=== PATIENT | female | born 1965 | race Caucasian/White ===

== ENCOUNTER → 2016-10-17 | Outpatient (CLI) | payer OTHER ==
--- NOTE | 2016-10-17 13:40 | BD ---
EXAMINATION TYPE: MG DEXA axial skeleton. DATE OF EXAM: 10/17/2016 8:42 AM COMPARISON: NONE CLINICAL HISTORY: Postmenopausal female Height: 62 Weight: 121.6 FRAX RISK QUESTIONS: Alcohol (3 or more units per day): YES Family History (Parent hip fracture): NO Glucocorticoids (More than 3mos): NO (Ex: prednisone, prednisolone, methylprednisolone, dexamethasone, and hydrocortisone). History of Fracture in Adulthood: NO Secondary Osteoporosis: 1. Type 1 Diabetes: NO 2. Hyperthyroidism: NO 3. Menopause before 45: AGE 49 4. Malnutrition: NO 5. Chronic liver disease: NO Rheumatoid Arthritis: NO Current Tobacco Use: NO RISK FACTORS HISTORY OF: Hip Fracture (Right/Left): NO Spine Fracture: NO History of Wrist Fracture: NO Surgery to Spine/Hip(right/left)/Wrist (right/left): NO Family History of Osteoporosis: YES Active: YES Diet low in dairy products/other sources of calcium: NO Postmenopausal woman: AROUND AGE 49 Lost more than 2 inches in height since high school: NO Frequent falls: NO Adrenal Insufficiency: NO MEDICATIONS: VENLAFAXINE, ATORVASTATIN, FLEXERIL, AMBIEN, RIZATRIPTAN Additional History: BREAST CANCER IN 2003 EXAM MEASUREMENTS: Bone mineral densitometry was performed using the [employer] System. Bone mineral density as measured about the Lumbar spine is: ----- L1-L4(G/cm2): 1.112 T Score Values are as follows: ----- L2: -0.5 ----- L3: -0.5 ----- L4: -0.3 ----- L1-L4: -0.6 Bone mineral density BASELINE HERE Bone mineral density about the R hip (g/cm2): 0.853 Bone mineral density about the L hip (g/cm2): 0.877 T Score values are as follows: -----R Neck: -1.3 -----L Neck: -1.2 -----R Intertrochanter: -0.6 -----L Intertrochanter: -0.1 Bone mineral density BASELINE IMPRESSION: No evidence for osteoporosis or osteopenia at this time. NOTE: T-SCORE=SD OF THE YOUNG ADULT MEAN.
--- NOTE | 2016-10-22 09:32 | MM ---
Reason for exam: additional evaluation requested from prior study. Last mammogram was performed 1 year and 1 month ago. History: Patient is postmenopausal and has history of breast cancer at age 37. Silicone gel implants in both breasts, 2003. Mastectomy of the right breast, 2003. Chemotherapy. Taking estrogen for 2 years. Taking tamoxifen for 5 years. Physical Findings: Nurse did not find any significant physical abnormalities on exam. MG Diag Mamm Implant LT w CAD CC and MLO view(s) were taken of the left breast. Prior study comparison: September 05, 2015, mammogram, performed at [facility]. March 12, 2013, mammogram, performed at [facility]. The breast tissue is heterogeneously dense. This may lower the sensitivity of mammography. No significant new findings when compared with previous films. These results were verbally communicated with the patient and result sheet given to the patient on 10/17/16. ASSESSMENT: Benign, BI-RAD 2 RECOMMENDATION: Follow-up diagnostic mammogram of the left breast in 1 year.
== END ==
LOC: RADMAMWWP 07:40
PROVIDERS: ATTEND Obstetrics & Gynecology
DX: Z08 Encounter for follow-up examination after completed treatment for malignant neoplasm (principal); Z85.3 Personal history of malignant neoplasm of breast; Z78.0 Asymptomatic menopausal state
CPT/HCPCS: 77080; G0206

== ENCOUNTER → 2017-10-29 | Outpatient (CLI) | payer OTHER ==
--- NOTE | 2017-10-29 10:54 | MM ---
Reason for exam: additional evaluation requested from prior study. Last mammogram was performed 1 year ago. History: Patient is postmenopausal and has history of breast cancer at age 37. Silicone gel implants in both breasts, 2003. Mastectomy of the right breast, 2003. Chemotherapy. Physical Findings: Nurse did not find any significant physical abnormalities on exam. MG Diag Mamm Implant LT w CAD CC and MLO view(s) were taken of the left breast. Prior study comparison: October 17, 2016, left breast MG diag mamm implant LT w CAD. September 05, 2015, mammogram, performed at [facility]. The breast tissue is heterogeneously dense. This may lower the sensitivity of mammography. Retropectoral silicone implants. No significant new findings when compared with previous films. These results were verbally communicated with the patient and result sheet given to the patient on 10/29/17. ASSESSMENT: Negative, BI-RAD 1 RECOMMENDATION: Routine screening mammogram of the left breast in 1 year.
== END ==
LOC: RADMAMWWP 09:45
PROVIDERS: ATTEND Obstetrics & Gynecology
DX: Z08 Encounter for follow-up examination after completed treatment for malignant neoplasm (principal); Z85.3 Personal history of malignant neoplasm of breast
CPT/HCPCS: 77065

== ENCOUNTER → 2018-10-06 | Outpatient (CLI) | payer OTHER ==
--- NOTE | 2018-10-06 14:09 | US ---
EXAMINATION TYPE: US pelvic complete DATE OF EXAM: 10/06/2018 COMPARISON: NONE CLINICAL HISTORY: 53-year-old female N95.0 Post menopausal bleeding. Pt states episode of vaginal spo tting one month ago x 2 days, pt states not on HRT's, H/O breast CA, LMP: 8 years ago TECHNIQUE: Transabdominal sonographic images of the pelvis were acquired. Pt declined TV at this zack e Date of LMP: 8 years ago FINDINGS: EXAM MEASUREMENTS: Uterus: 8.2 x 3.5 x 4.7 cm Endometrial Stripe: 0.6 cm Right Ovary: 1.7 x 1.2 x 1.0 cm Left Ovary: 1.8 x 1.4 x 1.5 cm 1. Uterus: Anteverted Heterogeneous with possible fibroid mid fundus= 2.1 x 1.8 x 2.5 cm. This umberto ears primarily intramural but may have a submucosal component. 2. Endometrium: Upper limits of normal to borderline thickened. 3. Right Ovary: wnl 4. Left Ovary: wnl 5. Bilateral Adnexa: wnl 6. Posterior cul-de-sac: wnl IMPRESSION: 1. The endometrial stripe is borderline to mildly thickened for a postmenopausal female at 6 mm. Cons ider either further evaluation versus follow-up. 2. A heterogeneous rounded area suggesting a 2.5 cm mid uterine fibroid. This appears primarily intra mural but may have a submucosal component. If indicated, female pelvic MRI can be considered to eduardo r assess the junctional anatomy and for assessment of underlying fibroid change.
== END ==
LOC: RADUSWWP 12:15
PROVIDERS: ATTEND Obstetrics & Gynecology
DX: R93.89 Abnormal findings on diagnostic imaging of other specified body structures (principal); N95.0 Postmenopausal bleeding
CPT/HCPCS: 76856

== ENCOUNTER → 2018-10-30 | Outpatient (CLI) | payer OTHER ==
--- NOTE | 2018-10-30 10:42 | BD ---
EXAMINATION TYPE: Axial Bone Density DATE OF EXAM: 10/30/2018 COMPARISON: 10.17.2016 CLINICAL HISTORY: 53 YR OLD FEMALE....ICD-10 CODE: M89.9 DISORDER OF BONE Height: 61.4 Weight: 124 FRAX RISK QUESTIONS: NOTHING TO NOTE HERE RISK FACTORS HISTORY OF: HX OF FX TO CLAVICLE AND SCAPULA AT 20 YRS OLD, Family History of Osteoporosis: YES, MOTHER AND SISTER NO HIP FXS Active: YES Postmenopausal woman: YES ABOUT 49 YRS OLD MEDICATIONS: Additional Medications: HX OF CHEMO, CALCIUM WITH D, BP MEDS, VENLAFAXINE, STATIN FOR CHOLDESTEOL , F EMARA FOR 5 YRS , NOT NOW, Additional History: HX OF RT BREAST CANCER AT 37 YRS OLD, HYPERTENSION, CHOLESTEROL, EXAM MEASUREMENTS: Bone mineral densitometry was performed using the [employer] System. Bone mineral density as measured about the Lumbar spine is: ----- L1-L4(G/cm2): 1.263 T Score Values are as follows: ----- L1: -0.2 ----- L2: -0.5 ----- L3: 0.8 ----- L4: 2.4 ----- L1-L4: 0.7 Bone mineral density has: Increased 14.1% since study of: 10.17.2016 Bone mineral density about the R hip (g/cm2): 1.010 Bone mineral density about the L hip (g/cm2): 1.020 T Score values are as follows: -----R Neck: -1.2 -----L Neck: -1.1 -----R Total: 0.0 -----L Total: 0.1 Bone mineral density has: Increased 3.0% since study of: 10.17.2016 FRAX%s: THERE IS A 4.7% CHANCE FOR A MAJOR OSTEOPOROTIC FX AND A 0.3% FOR HIP .....PROBABILITY OF F X IN 10 YRS TIME IMPRESSION: Normal (Values between +1 and -1 indicate normal bone mass). Consider repeating this study in 5 year s or sooner if there is some new clinical indication. NOTE: T-SCORE=SD OF THE YOUNG ADULT MEAN.
--- NOTE | 2018-10-31 11:50 | MM ---
Reason for exam: screening (asymptomatic). Last mammogram was performed 1 year ago. History: Patient is postmenopausal and has history of breast cancer at age 37. Silicone gel implants in both breasts, 2004. Mastectomy of the right breast, 2003. Chemotherapy. Physical Findings: A clinical breast exam by your physician is recommended on an annual basis and results should be correlated with mammographic findings. MG Screen Anmol Unilateral W/Cad CC, MLO, and ID view(s) were taken of the left breast. Prior study comparison: October 29, 2017, left breast MG diag mamm implant LT w CAD. October 17, 2016, left breast MG diag mamm implant LT w CAD. The breast tissue is heterogeneously dense. This may lower the sensitivity of mammography. Left retropectoral silicone implant. ASSESSMENT: Negative, BI-RAD 1 RECOMMENDATION: Routine screening mammogram of the left breast in 1 year.
== END | disposition home or self-care (01) ==
LOC: RADMAMWWP 09:17
PROVIDERS: ATTEND Obstetrics & Gynecology
DX: Z12.31 Encounter for screening mammogram for malignant neoplasm of breast (principal); M85.80 Other specified disorders of bone density and structure, unspecified site; Z90.11 Acquired absence of right breast and nipple; Z98.82 Breast implant status
CPT/HCPCS: 77067; 77080

== ENCOUNTER → 2020-03-07 | Outpatient (CLI) | payer OTHER ==
--- NOTE | 2020-03-07 09:45 | MM ---
Reason for exam: additional evaluation requested from prior study. Last mammogram was performed 1 year and 4 months ago. History: Patient is postmenopausal and has history of breast cancer at age 37. Silicone gel implants in both breasts, 2004. Mastectomy of the right breast, 2003. Chemotherapy. Physical Findings: Nurse did not find any significant physical abnormalities on exam. MG Diag Mamm Implant LT w CAD CC, MLO, and ID view(s) were taken of the left breast. Prior study comparison: October 30, 2018, bilateral MG screen ben unilateral w/cad. October 29, 2017, left breast MG diag mamm implant LT w CAD. The breast tissue is heterogeneously dense. This may lower the sensitivity of mammography. Retropectoral silicone implant. No significant new findings when compared with previous films. These results were verbally communicated with the patient and result sheet given to the patient on 03/07/20. ASSESSMENT: Negative, BI-RAD 1 RECOMMENDATION: Follow-up diagnostic mammogram of the left breast in 1 year.
== END | disposition home or self-care (01) ==
LOC: RADMAMWWP 08:56
PROVIDERS: ATTEND Obstetrics & Gynecology
DX: Z08 Encounter for follow-up examination after completed treatment for malignant neoplasm (principal); Z85.3 Personal history of malignant neoplasm of breast
CPT/HCPCS: 77065

== ENCOUNTER → 2021-09-19 | Outpatient (CLI) | payer BC ==
--- NOTE | 2021-09-19 09:13 | MM ---
Reason for exam: additional evaluation requested from prior study. Last mammogram was performed 1 year and 6 months ago. History: Patient is postmenopausal and has history of breast cancer at age 37. Silicone gel implants in both breasts, 2004. Mastectomy of the right breast, 2003. Chemotherapy. Physical Findings: A clinical breast exam by your physician is recommended on an annual basis and results should be correlated with mammographic findings. MG Diag Mamm Implant LT w CAD CC and MLO view(s) were taken of the left breast. Prior study comparison: March 07, 2020, left breast MG diag mamm implant LT w CAD. October 30, 2018, bilateral MG screen ben unilateral w/cad. The breast tissue is heterogeneously dense. This may lower the sensitivity of mammography. Left subpectoral implant redemonstrated. These results were verbally communicated with the patient and result sheet given to the patient on 09/19/21. ASSESSMENT: Benign, BI-RAD 2 RECOMMENDATION: Follow-up diagnostic mammogram of the left breast in 1 year.
== END | disposition home or self-care (01) ==
LOC: RADMAMWWP 08:31
PROVIDERS: ATTEND Obstetrics & Gynecology
DX: Z78.0 Asymptomatic menopausal state (principal); Z85.3 Personal history of malignant neoplasm of breast
CPT/HCPCS: 77065

== ENCOUNTER → 2022-11-05 | Outpatient (CLI) | payer BC ==
--- NOTE | 2022-11-06 09:19 | MM ---
Reason for Exam: Additional evaluation requested from prior study. Last mammogram was performed 1 year(s) and 1 month(s) ago. Patient History: Menarche at age 15. First Full-Term at age 25. Postmenopausal. Breast cancer, age 37. 2003, Mastectomy on the Right side. Chemotherapy. 2003, Bilateral Implants. Prior Study Comparison: 10/30/2018 Bilateral Screening Mammogram, [facility]. 03/07/2020 Left Diagnostic Mammogram, [facility]. 09/19/2021 Left Diagnostic Mammogram, [facility]. Tissue Density: Left: There are scattered fibroglandular densities. Findings: Analyzed By CAD. Marker placed at the site of palpable abnormality marked medial inferior aspect. Benign left axillary lymph nodes are redemonstrated. No obvious new mass identified. Overall Assessment: Incomplete: need additional imaging evaluation, BI-RAD 0 Management: Diagnostic Breast Ultrasound of the left breast. Targeted ultrasound left breast palpable. Results were given to the patient verbally at the time of exam. Electronically signed and approved by: Dylan Mueller M.D.
== END | disposition home or self-care (01) ==
LOC: RADMAMWWP 14:57
PROVIDERS: ATTEND Obstetrics & Gynecology
DX: R92.8 Other abnormal and inconclusive findings on diagnostic imaging of breast (principal); Z85.3 Personal history of malignant neoplasm of breast; Z78.0 Asymptomatic menopausal state
CPT/HCPCS: 77065

== ENCOUNTER → 2024-02-20 | Outpatient (CLI) | payer BC ==
--- NOTE | 2024-02-21 08:38 | BD ---
EXAMINATION TYPE: Axial Bone Density DATE OF EXAM: 02/20/2024 CLINICAL HISTORY: 58 years old Female. ICD-10 CODE: N95.1 POST MENOPAUSAL Height: 61.5 Weight: 116 FRAX RISK QUESTIONS: Family History (Parent hip fracture): yes History of Fracture in Adulthood: no Secondary Osteoporosis: no RISK FACTORS HISTORY OF: Surgery to Spine/Hip(right/left)/Wrist (right/left): no MEDICATIONS: Thyroid Medications: no Osteoporosis Medications: no EXAM MEASUREMENTS: Bone mineral densitometry was performed using the [employer]. Bone mineral density as measured about the Lumbar spine is: ----- L1-L4(G/cm2): 1.120 T Score Values are as follows: ----- L1: -1.3 ----- L2: -1.1 ----- L3: -0.9 ----- L4: 0.7 ----- L1-L4: -0.5 Z Score Values are as follows: ----- L1: 0.1 ----- L2: 0.3 ----- L3: 0.5 ----- L4: 2.1 ----- L1-L4: 0.9 Bone mineral density has: Decreased -11.3% since study of: 10/30/2018 Bone mineral density about the R hip (g/cm2): 0.972 Bone mineral density about the L hip (g/cm2): 1.007 T Score values are as follows: -----R Neck: -1.8 -----L Neck: -1.1 -----R Total: -0.3 -----L Total: 0.0 Z Score values are as follows: -----R Neck: -0.4 -----L Neck: 0.3 -----R Total: 0.8 -----L Total: 1.1 Bone mineral density has: Decreased -2.6% since study of: 10/30/2018 FRAX%s: The graph provided illustrates a 7.5% chance for a major osteoporotic fx and a 0.8% chance fo r the hips probability for fx in 10 years time. IMPRESSION: Normal (Values between +1 and -1 indicate normal bone mass). Consider repeating this study in 5 year s or sooner if there is some new clinical indication. NOTE: T-SCORE=SD OF THE YOUNG ADULT MEAN.
--- NOTE | 2024-03-17 12:25 | MM ---
Reason for Exam: Screening (asymptomatic). Last mammogram was performed 1 year(s) and 4 month(s) ago. Patient History: Menarche at age 15. First Full-Term at age 25. Postmenopausal. Patient has history of breast feeding. Breast cancer, right, age 37. 2003, Mastectomy on the Right side. Chemotherapy. 2003, Bilateral Implants. Prior Study Comparison: 03/07/2020 Left Diagnostic Mammogram, [facility]. 09/19/2021 Left Diagnostic Mammogram, [facility]. 11/05/2022 Left MG diag mamm implant LT w cad, [facility]. Tissue Density: Left: There are scattered areas of fibroglandular density. Findings: Analyzed By CAD. Bilateral left breast implants appear intact. Left breast: There is no suspicious group of microcalcifications or new suspicious mass. Overall Assessment: Benign, BI-RAD 2 Management: Screening Mammogram of both breasts in [address] [facility] will attempt to contact patient to return for supplemental views and ultrasound if indicated. Patient should continue monthly self-breast exams. A clinical breast exam by your physician is recommended on an annual basis. This exam should not preclude additional follow-up of suspicious palpable abnormalities. Note on Gely scores and lifetime risk: 1. A Gely score greater than 3% is considered moderate risk. If this is the case, consider specialist referral to assess eligibility for a risk reducing agent. 2. If overall lifetime risk for the development of breast cancer is 20% or higher, the patient may qualify for future screening with alternating mammogram and breast MRI. Electronically signed and approved by: Oskar Spicer DO
== END | disposition home or self-care (01) ==
LOC: RADMAMWWP 14:47
PROVIDERS: ATTEND Family Medicine
DX: Z12.31 Encounter for screening mammogram for malignant neoplasm of breast (principal); N95.1 Menopausal and female climacteric states; M85.89 Other specified disorders of bone density and structure, multiple sites; Z90.11 Acquired absence of right breast and nipple
CPT/HCPCS: 77067; 77080